=== PATIENT | female | born 1955 | race Caucasian/White ===

== ENCOUNTER 2021-11-02 16:13 | Emergency (ER) | payer BC, MEDICARE ==
[2021-11-02 17:49] VITALS: BP 116/60; PULSE 82; RESP 18; TEMP 97.9
--- NOTE | 2021-11-02 18:51 | XR ---
EXAMINATION TYPE: XR knee complete LT DATE OF EXAM: 11/02/2021 6:04 PM INDICATION: Patient age:Female; 66 years old; Reason for study: fall; COMPARISON: None. TECHNIQUE: The Left knee(s) was examined in 3 projections. Frontal, lateral and oblique. FINDINGS: No fracture or dislocation. Asymmetric joint space narrowing is noted, most pronounced wi thin the medial joint compartment. Enthesophyte formation is noted at the superior patellar pole. Mul tiple phleboliths and vascular calcifications are seen within the posterior soft tissues. Mild disten tion of the suprapatellar joint space. IMPRESSION: 1. No acute osseous pathology. 2. Mild tricompartmental osteoarthritic changes. 3. Mild distention of the suprapatellar joint space, this may represent a small effusion versus proje ction.
--- NOTE | 2021-11-02 19:45 | ED ---
Fall HPI - General Chief Complaint: Fall Stated Complaint: Fall-L knee injury Time Seen by Provider: 11/02/21 18:44 Source: patient, family Mode of arrival: ambulatory - History of Present Illness Initial Comments: This 66-year-old female presents with the complaint of a left knee injury. She apparently does have a history of meniscal tear to her left knee and has been following up with orthopedics and was told at one point that she may need surgery on her left knee. She then was having some problems with low back pain and was trying to resolve these his first. Today, she had a mechanical fall when she tripped and fell and landed on her left knee. The pain has significantly increased to her left knee. She states that she is unable to bear any weight. She states that the pain is fairly severe. She did take one and a half of her [place] 5/325 pills with some relief. She denies any other injuries. There is no other complaints or modifying factors. The pain is primarily at the joint line left knee. - Related Data Previous Rx's Medication Instructions Recorded HYDROcodone/APAP 7.5-325MG [[place] 1 tab PO Q4H PRN 3 Days #18 tab 11/02/21 7.5-325] Allergies Allergy/AdvReac Type Severity Reaction Status Date / Time LEXI Inhibitors Allergy Anaphylaxis Verified 11/02/21 17:49 Review of Systems ROS Statement: Those systems with pertinent positive or pertinent negative responses have been documented in the HPI. ROS Other: All systems not noted in ROS Statement are negative. Past Medical History Past Medical History: Hypertension Past Surgical History: Bariatric Surgery, Section, Hysterectomy Smoking Status: Former smoker Past Alcohol Use History: Occasional Past Drug Use History: None Reported General Exam - General Exam Comments Initial Comments: GENERAL: The patient is well nourished and well hydrated. VITAL SIGNS: Heart rate, blood pressure, respiratory rate reviewed as recorded in nurse's notes. EYES: Pupils are round and reactive. Extraocular movements are intact. No conjun ctival / lid redness or swelling. ENT: No external evidence of injury, swelling, or ecchymosis. Airway is patent. Throat is clear. NECK: Nontender. No swelling or evidence of injury. No subcutaneous emphysema. Trachea is midline. No thyroid mass. HEART: Regular rate and rhythm. Good peripheral pulses. LUNGS/CHEST: Breath sounds clear and equal bilaterally. No rales, rhonchi, or wheezes. No ecchymosis, subcutaneous emphysema, or tenderness. ABDOMEN: Abdomen soft without tenderness. No palpable masses or organomegaly. No peritoneal signs. No abdominal wall swelling or ecchymosis. EXTREMITIES: Tenderness is noted directly to the joint line left knee. There may be some minimal swelling but no significant effusion. There is pain with drawer testing, Kacy testing, and valgus testing. The pain is fairly exquisite with Kacy. There is some pain with extremes of range of motion as well. Normal muscle tone and function. No thoracolumbar tenderness. NEUROLOGIC: Sensation is grossly intact. Cranial nerve exam reveals face is symmetrical, tongue is midline, speech is clear. SKIN: No abrasions or ecchymosis is noted. No induration or masses noted. PSYCHIATRIC: Alert and oriented. Appropriate behavior and judgment. Limitations: physical limitation Course Vital Signs 11/02/21 17:39 Temperature 97.9 F Pulse Rate 82 Respiratory 18 Rate Blood Pressure 116/60 O2 Sat by Pulse 97 Oximetry Medical Decision Making - Medical Decision Making The patient was seen and examined. All diagnostics are reviewed. The patient had an x-ray of her left knee. This did show significant arthritis but there is no evidence of fracture. Patient is placed in a knee immobilizer and dispensed crutches. A long discussion was held in regards to further treatment options. She initially relates that she does not feel as though she can be discharged home as she lives upstairs. Her daughter is present as well and daughter relates that she can come live at their house which is arranged. Patient would prefer to attempt going to her daughter's house. She feels as though she can utilize crutches. She also will be prescribed a walker in case she is able to bear some degree of weight in the next several days. Her [place] will be increased from the 5/325-7.5/325. She apparently cannot tolerate nonsteroidal anti-inflammatory medications. Return parameters are discussed. Close follow- up with her orthopedic doctor is recommended. She states that she has an appointment in approximately one week but she is instructed to call on Thursday a.m. to try to get a sooner appointment. It is felt as though she likely does have a meniscal tear among other injuries to her left knee and may end up needing another MRI scan Disposition Clinical Impression: Fall, Knee sprain, Meniscal injury Disposition: HOME SELF-CARE Condition: Good Prescriptions: HYDROcodone/APAP 7.5-325MG [[place] 7.5-325] 1 tab PO Q4H PRN 3 Days #18 tab PRN Reason: Pain Is patient prescribed a controlled substance at d/c from ED?: Yes If prescribed controlled substance>3 days was MAPS reviewed?: Prescribed <3 Days Referrals: Kevin Romero MD [Primary Care Provider] - 1-2 days Time of Disposition: 19:44
== END 2021-11-02 21:46 | disposition home or self-care (01) ==
LOC: EC 16:13
DX: S83.92XA Sprain of unspecified site of left knee, initial encounter (principal); I10 Essential (primary) hypertension; Z87.891 Personal history of nicotine dependence; Z88.8 Allergy status to other drugs, medicaments and biological substances; W01.0XXA Fall on same level from slipping, tripping and stumbling without subsequent striking against object, initial encounter
CPT/HCPCS: 73562; 99283; L1830